=== PATIENT | female | born 1945 | race Caucasian/White ===

== ENCOUNTER → 2016-11-25 | Outpatient (CLI) | payer MEDICARE ==
[~2016-11-25] MED LIST: AMBI5TAB PO; CRANCAP10 PO; HYDR-3516 PO; MULT1TAB46 PO; VITA100C4 PO; ZOLO100T PO
[2016-11-25 10:47] LABS: BICARBONATE 28.1 MEQ/L (21.0-32.0); POTASSIUM 3.9 MEQ/L (3.5-5.1)
--- NOTE | 2016-11-25 11:58 | RADRPT ---
EXAM DATE/TIME: 11/25/2016 11:27 [place] COMPARISON: No previous studies available for comparison. INDICATIONS : Evaluate for pneumonia, pneumothorax or communicable disease. pre-op for left knee arthroscopy. MEDICAL HISTORY : None. SURGICAL HISTORY : None. ENCOUNTER: Initial ACUITY: 1 day PAIN SCORE: 0/10 LOCATION: chest FINDINGS: There are chronic interstitial changes within the pulmonary parenchyma. There is a 4 mm calcified gra nuloma in the right upper lobe. The heart is normal in size. The mediastinal contours are within norm al limits. The bony structures are intact. CONCLUSION: 1. There are chronic interstitial changes. Jerrod Brice MD on November 25, 2016 at 11:56 Board Certified Radiologist. This report was verified electronically.
[2016-11-25 12:05] LABS: BLOOD, URINE NEG (NEG); COMMENT (UR) CULT NOT INDICATED; CULTURE IF INDICATED CULT NOT INDICATED; GLUCOSE,URINE NEG (NEG); KETONE, URINE NEG (NEG); NITRITE,URINE NEG (NEG); URINE COLOR LIGHT-YELLOW (YELLW/STRAW)
--- NOTE | 2016-11-25 22:20 | EKG ---
Date Performed: 11/25/2016 Time Performed: 10:17:18 PTAGE: 71 years EKG: SINUS BRADYCARDIA WITH FIRST DEGREE AV BLOCK ABNORMAL ECG NO PREVIOUS TRACING DOCTOR: Nazario Sandoval Interpretating Date/Time 11/25/2016 22:18:22
== END ==
LOC: CPRE 09:39
PROVIDERS: ATTEND Orthopaedic Surgery
DX: Z01.812 Encounter for preprocedural laboratory examination (principal); Z01.810 Encounter for preprocedural cardiovascular examination; Z01.811 Encounter for preprocedural respiratory examination; S83.232D Complex tear of medial meniscus, current injury, left knee, subsequent encounter; I44.0 Atrioventricular block, first degree; X58.XXXD Exposure to other specified factors, subsequent encounter
CPT/HCPCS: 36415; 71020; 80048; 81001; 85610; 93005

== ENCOUNTER → 2016-12-02 | Day surgery (SDC) | payer MEDICARE ==
--- NOTE | 2016-11-28 12:04 | MH ---
cc: MAITETINACAYDEN MALLOY DATE OF ADMISSION: 12/02/2016 ADMITTING DIAGNOSIS Complex tear medial meniscus, left knee. Chondromalacia, left knee. Chondromalacia patellae, left knee. Pain, left knee. HISTORY OF PRESENT ILLNESS The patient is a 71-year-old white female who has experienced pain of her left knee of almost three years duration. She presented to the undersigned physician in February 2016 reporting that for the previous two years she had noted generalized soreness about both knees unrelated to injury or unusual activity. She was described by her as frequently assuming a kneeling position for cleaning activities at home for which she had become more aware of discomfort about the knee region, although she had remained ambulatory during this interval of time. She was aware of occasional swelling with an intermittent popping sensation being more pronounced on the left side. She had alternated between various medications including ibuprofen, tramadol and an occasional Percocet that she had available at home as well as utilizing ice and conforming to periods of elevation. Her activities have included walking her dog on a routine basis. At the time of her initial evaluation her x-ray studies were without evidence of any appreciable degenerative changes about her knee joint. The patient was diagnosed as having a transient synovitis for which she was initiated into a course of physical therapy while being followed on an outpatient basis. Her symptoms lingered and the patient subsequently underwent an initial CT scan of her right knee which did identify high-grade tricompartmental chondral fissuring with synovitis but no meniscal tear, other internal derangement being noted. The patient received an intraarticular injection and continued to take ibuprofen on a routine basis. She returned to the office in October of this year reporting ongoing pain especially involving both knees. 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 The patient did receive a Toradol injection, was prescribed diclofenac 75 mg and a course of prednisone 50 mg. Based upon her lingering symptoms recommendation was made to proceed with further diagnostic studies. The patient was unable to complete an MRI scan having undergone previous insertion of a bladder stimulator but did undergo a CT scan with contrast of her left knee, the results of which identified a complex tear of the medial meniscus involving the posterior horn and a large fragment displaced into the intercondylar notch. There was focal chondromalacia throughout the medial and lateral compartments as well as the patellofemoral joint. The patient continued with pain about the medial aspect of her left knee for which she was unable to appreciate any significant improvement with continued use of ibuprofen and tramadol and thus expressed her desire to proceed with a more definitive course of treatment. The involvement of arthroscopic surgery was outlined for which the patient indicated her full understanding and expressed her desire to proceed accordingly. In compliance with her wishes she is currently being admitted in order that the above be accomplished. PAST MEDICAL HISTORY Her past medical history, hospitalizations and surgeries have included: 1. Abdominal hysterectomy. 2. Appendectomy. 3. Left oophorectomy. 4. Tonsillectomy. 5. Insertion of a bladder stimulator. 6. Surgical decompression of the first dorsal compartment of her right wrist for a history of stenosing tenosynovitis. 7. Trigger finger release right long finger. 8. Excision of a subcutaneous cyst of her right wrist. The patient's current medical illnesses include anxiety for which she takes Zoloft 100 mg daily. She also takes Ambien 5 mg at bedtime. MEDICATIONS Additional medications include: 1. Vitamin-E. 2. 81 mg aspirin tablet daily. 3. Oxycodone. 4. Cranberry with vitamin-C. ALLERGIES The patient describes a drug allergy to: 1. PENICILLIN WHICH HAS CAUSED A HIVES-LIKE REACTION. 2. DEMEROL HAS CAUSED NAUSEA AND VOMITING. 3. THE PATIENT HAD SUGGESTED AN ALLERGY TO CODEINE IN THE PAST BUT HAS BEEN TOLERATING OXYCODONE WITHOUT ADVERSE SIDE EFFECT BEING NOTED. REVIEW OF SYSTEMS She wears glasses. Occasional tension headaches. No seizure or syncope. No sinus congestion or epistaxis. Auditory acuity intact. No tinnitus. No bleeding gums or dysphagia. Denies cough, shortness of breath, upper respiratory infection or tuberculosis. She has been treated for pneumonia in the past. No angina or heart disease. Appetite good. Bowel movements regular. There is a history of hepatitis during her teenage years. No gallbladder disease, ulcers or hemorrhoids. No urinary tract infection. No kidney stones. History of fracture of the right ankle and left wrist treated nonoperatively. No psychiatric illness. The remaining review of systems is unremarkable and noncontributory. FAMILY HISTORY 53 years. is 76 years of age in good health. Two sons described as being in good health. Family history is positive for heart disease, hypertension and colon cancer. 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 She completed a high school education. Denies active use of tobacco. Ethanol consumption rarely on a social basis. PHYSICAL EXAMINATION Height 5 feet 4 inches, weight 168 pounds. GENERAL: An alert, oriented and responsive 71-year-old white female who sits quietly on the examination table with no apparent distress. HEAD, EYES, EARS, NOSE, AND THROAT: Pupils are equal, round and reactive to light. Extraocular movements full. Sclera clear. External nares clear. External auditory canals clear. Dental intact. Mucous membranes pink and moist. Pharynx clear. NECK: Supple. Active mobility with no associated pain. Carotid pulse palpable bilaterally. Trachea midline. Thyroid without enlargement. LUNGS: Clear to auscultation and percussion. No CVA tenderness. No discomfort throughout the dorsolumbar spine. HEART: Regular rhythm. No murmur or gallop. ABDOMEN: Soft, nontender. Bowel sounds present. PELVIC: Per her primary care physician. EXTREMITIES: Left Knee: There is a mild fullness about the knee consistent with redundancy of soft tissue. No appreciable intraarticular effusion. Medial joint line tenderness without palpable deformity. Apprehension and compression sign negative. Limited and guarded mobility in the 100 degree range of flexion with mild discomfort at the extreme of motion. No crepitation or instability. No collateral ligamentous laxity. Carmella test and drawer sign negative. Pivot shift and Paramjit sign positive for medial compartment pain. Distal sensory grossly intact. Antalgic gait. NEUROLOGIC: Cranial nerves II through XII grossly intact. IMPRESSION Complex tear medial meniscus, left knee. Chondromalacia, left knee. Chondromalacia patellae, left knee. Pain, left knee. PLAN Arthroscopic surgery and possible arthrotomy, left knee. The nature of the planned surgical procedure, the potential complications and risks associated, the expectations of surgery and the consent form were thoroughly reviewed with the patient in the presence of her prior to admission to the hospital. Phoebe has indicated her full understanding regarding all of the above and given consent to proceed with treatment as outlined. Medical evaluation and clearance for surgery will be completed by her primary care physician, Dr. Lee. MD SANDER Jean/ANDRADE /11:33 AM /11:48 AM
[~2016-12-02] VITALS: Ht 162.6 cm; Wt 77.0 kg
[~2016-12-02] MED LIST changes: +*RESP: ALBUTEROL 2.5 MG/3 ML NEB (PRN) PERIprocedural Use ONLY NEB ONE; +*morphine SULFATE 8 MG/ML PERIprocedure ONLY ONE; +ACETAMINOPHEN 1000 MG/100 ML VIAL IV ONE; +ACETAMINOPHEN/HYDROcodone 325 MG/5 MG TAB PO PRN; +CHLORHEXIDINE GLUCONATE 2 % 1 PACK (2 CLOTHS) TOPICAL PRN; +DO NOT ADM ANY ANTICOAGULANT DRUGS PRN; +FAMOTIDINE 20 MG/2 ML VIAL ONE; +INSULIN HUMAN REGULAR 1,000 UNITS/10 ML VIAL SQ PRN; +KETOROLAC TROMETHAMINE 60 MG/2 ML (IM) VIAL IM ONE; +LACTATED RINGER'S 1000 ML IV PRN; +LIDOCAINE HCL 2% 50 ML VIAL ONE; +METOPROLOL TARTRATE 25 MG TAB PO PRN; +MIDAZOLAM HCL 2 MG/2 ML VIAL ONE; +MORPHINE SULFATE 10 MG/ML INJ IM PRN; +ONDANSETRON HCL 4 MG/2 ML VIAL IV PUSH ONE; +PHENERGAN 25 MG IM; +POVIDONE IODINE 5% (ANTISEPSIS KIT) 4 APPLICATIONS EACH NARE PRN; +POVIDONE IODINE 7.5% SCRUB 118 ML BOTTLE TOPICAL SCH; +PROPOFOL 200 MG/20 ML AMP IV ONE; +SODIUM CHLORID 0.9% 500 ML IV PRN; +TRIAMCINOLONE ACETONIDE 40 MG/ML VIAL ONE; +VANCOMYCIN 1000 MG/NS 250 ML (for <70 kg) IV SCH; +[UNRECOGNIZED DRUG - OTHER] IM; +fentaNYL CITRATE 250 MCG/5 ML AMP ONE
[2016-12-02 06:28] VITALS: BP 134/64; PULSE 74; RESP 16; TEMP 98; O2SAT 97
[2016-12-02 11:09] VITALS: BP 142/67; PULSE 84; RESP 18; TEMP 97.8; O2SAT 94
--- NOTE | 2016-12-02 22:38 | MP ---
cc: CAYDEN LIAO DATE OF SURGERY 12/02/16 PREOPERATIVE DIAGNOSIS Complex tear medial meniscus, left knee. Chondromalacia, left knee. Chondromalacia patellae, left knee. Pain, left knee. POSTOPERATIVE DIAGNOSIS Complex tear medial meniscus, left knee. Chondromalacia, left knee. Chondromalacia patellae, left knee. Pain, left knee. Degenerative tear lateral meniscus, left knee. PROCEDURE Partial medial and lateral meniscectomy, left knee with chondroplasty of the patellofemoral joint. SURGEON MD Yanni ANESTHESIA General by LMA. FORMAT Following the induction of satisfactory general anesthesia by LMA insertion as completed per the Department of Anesthesia examination of the left knee revealed a satisfactory range of motion with no appreciable ligamentous instability. The extremity proper was positioned in the retail store assistant knee valenzuela, prepped with Betadine solution and draped into a sterile field in the routine manner. Prior to initiation of the actual procedure the standard time-out protocol was completed. All parameters were appropriately addressed and confirmed by operating room personnel. Arthroscopic instrumentation was introduced through stab wound utilizing cannula with sharp and blunt trocar. The inflow irrigation by way of a medial suprapatellar portal, the arthroscope through a lateral parapatellar portal and a probe through a medial parapatellar portal. Examination of the suprapatellar pouch revealed generalized reactive synovitis. There was articular irregularity of the patellofemoral joint consistent with localized chondromalacia. Within the medial compartment a prominent tear involving the body and posterior horn of the medial meniscus was noted. There were associated articular irregularities along the femoral condyle and tibial plateau consistent with localized chondromalacia. Proliferative synovium extended into the intercondylar region. The anterior cruciate ligament was noted to be intact. Examination of the lateral compartment revealed an obvious degenerative tear involving the body of the lateral meniscus. Utilizing a 3.8 full radius resector through the medial portal a partial lateral meniscectomy was accomplished. Limited debridement within the intercondylar region followed and thereafter the shaver was oriented into the medial compartment where a partial medial meniscectomy was accomplished as well as generalized debridement of the articular surfaces of both the femoral condyle and tibial plateau. The shaver was thereafter oriented into the patellofemoral joint where a generalized chondroplasty was accomplished as well as debridement of proliferative synovium. Upon completion of same the joint space was thoroughly lavaged and suctioned dry. An intra-articular Kenalog lidocaine injection was completed. Portal sites were reapproximated with Steri-Strips over which Xeroform gauze and a bulky dry sterile dressing were placed. Anesthesia was discontinued and the patient thus transferred to a hospital stretcher and returned to the recovery room in satisfactory condition having tolerated her operative procedure well. Estimated blood loss was approximately 10 cc. Cayden Liao MD NBS/EO /9:08 AM /10:24 PM
== END | disposition home or self-care (01) ==
LOC: HSDC 05:33
PROVIDERS: ATTEND Orthopaedic Surgery
DX: M23.252 Derangement of posterior horn of lateral meniscus due to old tear or injury, left knee (principal); M94.262 Chondromalacia, left knee; M67.362 Transient synovitis, left knee; F41.9 Anxiety disorder, unspecified
CPT/HCPCS: 01400; 29880; 94664; J0131; J1885; J2250; J2270; J2405; J3010; J3301; J3370; J7050; J7120; J7613